=== PATIENT | male | born 1945 | race Caucasian/White ===

== ENCOUNTER 2021-10-24 07:34 | Day surgery (SDC) | payer MEDICARE ==
[~2021-10-24] VITALS: Ht 163 cm; Wt 70.0 kg
[~2021-10-24 07:34] MED LIST: ASCORBIC ACID500 MG PO; ASPIRIN EC81 MG PO; LIPITOR20 MG PO; MAG-OXIDE 400M400 MG PO; MULTIVITAMIN1 EACH PO; OMEPRAZOLE20 M1 PO; VITAMIN D325 MC1 PO; ZINC50 M2 PO
[2021-10-25 07:00] LABS: BASOPHIL 0.1 % (0-2); EOSINOPHIL 0 % (0-7); HCT 30.1 % (42.0-52.0); HGB 10.1 g/dl (13.2-18.0); MCH 31.4 pg (25.0-31.0); MCHC 33.6 g/dL (32.0-36.0); MCV 93.5 fL (78.0-100.0); MONOCYTE 6.2 % (0-12); MPV 10.7 fL (6.0-9.5); NEUTROPHIL 87.2 % (41-80); NRBC 0; PLT 168 K/uL (150-400); RBC 3.22 M/uL (4.70-6.00); RDW 12.1 % (11.5-14.0); WBC 13.1 K/uL (4.0-10.5)
[2021-10-25 07:48] LABS: BUN/CREAT RATIO (CALC) 16.5 RATIO; CREATININE 0.85 mg/dL (0.67-1.17); POTASSIUM 4.3 mmol/L (3.5-5.1)
[2021-10-25] MEDS ORDERED: NORCO 5-325 TA1 EACH PO (09:19)
[2021-10-25] MEDS ORDERED: ASPIRIN325 MG PO (09:19)
[2021-10-25] MEDS ORDERED: FEOSOL325 MG PO (09:20)
[2021-10-25] MEDS ORDERED: ONDANSETRON HCL4 MG PO (11:00)
--- NOTE | 2021-10-25 11:12 | NUR ---
PT HAD A RRTSR ON 10/24/21. HE WILL D/C HOME WITH SPOUSE ON 10/25/21 WITH NO NEEDS.
== END 2021-10-25 12:20 | disposition home or self-care (01) ==
LOC: FOFB 07:34 → FAS 07:34 → FOFB 12:32 → FAS 10-25 12:20
PROVIDERS: Legal Medicine
DX: M19.011 Primary osteoarthritis, right shoulder (principal); G89.18 Other acute postprocedural pain; M75.101 Unspecified rotator cuff tear or rupture of right shoulder, not specified as traumatic; M19.012 Primary osteoarthritis, left shoulder; E78.5 Hyperlipidemia, unspecified; K21.9 Gastro-esophageal reflux disease without esophagitis; Z88.5 Allergy status to narcotic agent; Z79.82 Long term (current) use of aspirin
CPT/HCPCS: 36415; 73020; 80048; 85025; 86850; 86900; 86901; 94010; 97162; 97166; 97530-GP; 97535; C1713; C1776; J0171; J0697; J1100; J1885; J2250; J2405; J2704; J2710; J2795; J3010; J7120